=== PATIENT | female | born 1950 | race Caucasian/White ===

== ENCOUNTER 2017-03-20 13:24 | Emergency (ER) | payer OTHER, BC ==
[~2017-03-20] VITALS: Ht 162.6 cm; Wt 81.6 kg
[2017-03-20 15:34] VITALS: BP 135/71
== END 2017-03-20 15:34 | disposition home or self-care (01) ==
LOC: ED 13:24
DX: S52.614A Nondisplaced fracture of right ulna styloid process, initial encounter for closed fracture (principal); I10 Essential (primary) hypertension; E11.9 Type 2 diabetes mellitus without complications; W18.00XA Striking against unspecified object with subsequent fall, initial encounter; Y93.89 Activity, other specified; Y92.89 Other specified places as the place of occurrence of the external cause; Y99.8 Other external cause status; S50.311A Abrasion of right elbow, initial encounter
CPT/HCPCS: 90715